=== PATIENT | female | born 1985 | race African-American/Black ===

== ENCOUNTER 2019-04-07 17:56 | Emergency (ER) | payer OTHER | END 2019-04-07 18:59 | disposition home or self-care (01) | LOC: JERFT 17:56 ==

== ENCOUNTER 2022-01-18 17:12 | Emergency (ER) | payer OTHER ==
[2022-01-18 17:19] VITALS: PULSE 98; BMI 39.0
[2022-01-18 19:02] VITALS: TEMP 98.4
[2022-01-18 19:54] VITALS: BP 124/70
== END 2022-01-18 19:40 | disposition home or self-care (01) ==
LOC: JER 17:12
DX: O21.8 Other vomiting complicating pregnancy (principal); Z3A.30 30 weeks gestation of pregnancy
CPT/HCPCS: 99281-25

== ENCOUNTER 2022-03-21 07:55 | Inpatient (IN) | payer OTHER ==
[2022-03-21 08:50] VITALS: BMI 42.4
[2022-03-21 09:06] LABS: BASO % 0.5 % (0-2.0); EOS % 0.7 % (0-4.5); HEMATOCRIT 28.5 % (32.4-45.2); HEMOGLOBIN 9.6 GM/dL (10.7-15.3); LYMPH % 19.2 % (8-40); MCH 28.3 pg (25.7-33.7); MCHC 33.7 g/dl (32.0-36.0); MEAN PLT VOLUME 6.9 fl (7.5-11.1); MONO % 4.6 % (3.8-10.2); PLATELET COUNT 308 10^3/uL (134-434); RBC 3.39 M/mm3 (3.60-5.2); RDW 13.9 % (11.6-15.6); WHITE BLOOD COUNT 8.3 K/mm3 (4.0-10.0)
[2022-03-21 09:14] LABS: ACTIVATED PTT 31.1 SECONDS (25.2-36.5); INR 0.97 (0.83-1.09); PROTHROMBIN TIME (PATIENT) 11.1 SEC (9.7-13.0)
[2022-03-21] MEDS ORDERED: DEXTROSE 5%-LACTATED RINGERS 1,000 ML IV SCH (09:15)
[2022-03-21] MEDS ORDERED: OXYTOCIN 30 UNITS in 0.9% NS 30 UNIT/500 ML INFUS.BAG IVPB SCH (09:15)
[2022-03-21] MEDS ORDERED: PROMETHAZINE HCL 25 MG/1 ML VIAL IVPUSH ONE (09:16)
[2022-03-21] MEDS ORDERED: BUTORPHANOL TARTRATE 1 MG/ML VIAL IVPUSH SCH (09:16)
[2022-03-21] MEDS ORDERED: OXYTOCIN 30 UNITS in 0.9% NS 30 UNIT/500 ML INFUS.BAG IVPB ONE (09:25)
[2022-03-21 09:30] LABS: BLOOD UREA NITROGEN 17.4 mg/dL (7-18)
[2022-03-21 09:31] LABS: PHENCYCLIDINE,URINE NEGATIVE (NEGATIVE); URINE BARBITURATES NEGATIVE (NEGATIVE)
[2022-03-21 09:32] LABS: COCAINE, UR NEGATIVE (NEGATIVE); METHADONE, UR NEGATIVE (NEGATIVE); OPIATES, URI NEGATIVE (NEGATIVE); URINE BENZODIAZEPINES NEGATIVE (NEGATIVE)
[2022-03-21 09:33] LABS: CREATININE 0.5 mg/dL (0.55-1.3)
[2022-03-21 09:34] LABS: URINE AMPHETAMINES NEGATIVE (NEGATIVE)
[2022-03-21] MEDS ORDERED: BUTORPHANOL TARTRATE 2 MG/ML VIAL ONE (13:10)
[2022-03-21] MEDS ORDERED: PROMETHAZINE HCL 25 MG/1 ML VIAL ONE (13:11)
[2022-03-21] MEDS ORDERED: ELECTROLYTE-148 SOLN 1,000 ML IV SCH (15:30)
[2022-03-21] MEDS ORDERED: FENTANYL/BUPIVACAINE/NS/PF - PCEA - 50 ML DISP.SYRIN EP ONE ×2 (15:36→20:54)
[2022-03-21] MEDS ORDERED: NALOXONE HCL 0.4 MG/ML VIAL IVPUSH PRN (15:49)
[2022-03-21] MEDS ORDERED: BUPIVACAINE HCL/PF 0.25% (2.5MG/ML) 10 ML VIAL ONE (15:53)
[2022-03-21] MEDS ORDERED: FENTANYL/BUPIVACAINE/NS/PF - PCEA - 50 ML DISP.SYRIN EP SCH (16:00)
[2022-03-21] MEDS ORDERED: CITRIC ACID/SODIUM CITRATE 30 ML UNIT-DOSE CUP PO ONE (21:39)
[2022-03-21] MEDS ORDERED: AMPICILLIN SODIUM 2 GM VIAL ONE (21:59)
[2022-03-21] MEDS ORDERED: AMPICILLIN - 2 GM in SODIUM CHLORIDE 100 ML IVPB ONE (22:00)
[2022-03-22] MEDS ORDERED: FENTANYL/BUPIVACAINE/NS/PF - PCEA - 50 ML DISP.SYRIN EP ONE (01:58)
[2022-03-22] MEDS ORDERED: AMPICILLIN SODIUM 1 GM VIAL ONE (01:59)
[2022-03-22] MEDS ORDERED: AMPICILLIN - 1 GM in SODIUM CHLORIDE 100 ML IVPB SCH (02:00)
[2022-03-22] MEDS ORDERED: BUPIVACAINE HCL/PF 0.25% (2.5MG/ML) 10 ML VIAL ONE (03:19)
[2022-03-22] MEDS ORDERED: LIDOCAINE HCL 1% PRESERVATIVE FREE - 30ML VIAL ONE (03:27)
[2022-03-22] MEDS ORDERED: OXYTOCIN 20 UNITS in 0.9% NS 20 UNIT/1,000 ML INFUS.BAG IV ONE (03:27)
[2022-03-22] MEDS ORDERED: MISOPROSTOL 200 MCG TABLET ONE (04:25)
[2022-03-22] MEDS ORDERED: MISOPROSTOL 25 MCG TABLET (COMPOUNDED BY PHARMACY) PO ONE (04:30)
[2022-03-22] MEDS ORDERED: METHYLERGONOVINE MALEATE 0.2 MG/1 ML AMP IM PRN (06:07)
[2022-03-22] MEDS ORDERED: ACETAMINOPHEN 325 MG TABLET (FP) PO PRN (06:07)
[2022-03-22] MEDS ORDERED: WITCH HAZEL 50% (TUCKS) 40 PAD/JAR PAD TP PRN (06:07)
[2022-03-22] MEDS ORDERED: BENZOCAINE 28 GM HEMORRHOIDAL OINTMENT TP PRN (06:07)
[2022-03-22] MEDS ORDERED: BENZOCAINE 20% 57 GM BOTTLE TP PRN (06:07)
[2022-03-22] MEDS ORDERED: BISACODYL 10 MG SUPP.RECT RC PRN (06:07)
[2022-03-22] MEDS ORDERED: OXYTOCIN 20 UNITS in 0.9% NS 20 UNIT/1,000 ML INFUS.BAG IV SCH (06:15)
[2022-03-22 07:05] LABS: CORD BASE EXCESS -5.4 mmol/L (0-2); CORD HCO3 20.7 mmHg (20-29); CORD PCO2 42.4 mmHg (30-78); CORD pH 7.307 (7.14-7.44)
[2022-03-22 07:08] LABS: CORD BASE EXCESS -6.7 mmol/L (0-2); CORD HCO3 21.6 mmHg (20-29); CORD pH 7.229 (7.14-7.44)
[2022-03-22] MEDS: FERROUS SO4 325 MG TABLET (FP) PO SCH ×2 (08:17→17:05)
[2022-03-22] MEDS: IBUPROFEN 600 MG TABLET (FP) PO PRN ×3 (08:17→23:44)
[2022-03-22] MEDS: PRENATAL VITAMINS W/ FOLIC ACID TABLET (FP) PO SCH (09:39)
[2022-03-23 07:05] LABS: BASO % 0.5 % (0-2.0); EOS % 1.4 % (0-4.5); HEMATOCRIT 22.9 % (32.4-45.2); HEMOGLOBIN 7.5 GM/dL (10.7-15.3); LYMPH % 23.9 % (8-40); MCH 28.1 pg (25.7-33.7); MCHC 32.9 g/dl (32.0-36.0); MEAN CELL VOLUME 85.3 fl (80-96); MEAN PLT VOLUME 7.4 fl (7.5-11.1); MONO % 5.7 % (3.8-10.2); NEUT % 68.5 % (42.8-82.8); PLATELET COUNT 261 10^3/uL (134-434); RBC 2.68 M/mm3 (3.60-5.2); RDW 14.2 % (11.6-15.6); WHITE BLOOD COUNT 10.2 K/mm3 (4.0-10.0)
[2022-03-23] MEDS: PRENATAL VITAMINS W/ FOLIC ACID TABLET (FP) PO SCH (10:11)
[2022-03-23] MEDS: FERROUS SO4 325 MG TABLET (FP) PO SCH ×2 (10:11→17:44)
[2022-03-23] MEDS: oxyCODONE HCL 5 MG TABLET PO PRN ×2 (11:41→21:52)
[2022-03-23] MEDS ORDERED: SENNOSIDES/DOCUSATE COMBO (SENNA PLUS) TABLET (UD) PO PRN (22:00)
[2022-03-23 22:15] VITALS: BP 110/73
[2022-03-24] MEDS: FERROUS SO4 325 MG TABLET (FP) PO SCH (08:17)
[2022-03-24] MEDS: IBUPROFEN 600 MG TABLET (FP) PO PRN (08:17)
[2022-03-24 09:47] VITALS: TEMP 99.5
[2022-03-24] MEDS ORDERED: DIPHTH,PERTUSS(ACELL),TET 0.5 ML DISP.SYRIN IM ONE (10:00)
[2022-03-24] MEDS: PRENATAL VITAMINS W/ FOLIC ACID TABLET (FP) PO SCH (10:06)
[2022-03-24 11:01] VITALS: PULSE 75
== END 2022-03-24 12:40 | disposition home or self-care (01) | DRG 560 ==
LOC: JLDR 07:55 → J3W 03-22 08:09
PROVIDERS: ADMIT Obstetrics & Gynecology; ATTEND Obstetrics & Gynecology
PROC: 10H073Z Insertion of Monitoring Electrode into Products of Conception, Via Natural or Artificial Opening (ICD-10-PCS; 2022-03-21)
PROC: 10E0XZZ Delivery of Products of Conception, External Approach (ICD-10-PCS; principal; 2022-03-22)
PROC: 0W8NXZZ Division of Female Perineum, External Approach (ICD-10-PCS; 2022-03-22)
DX: O42.02 Full-term premature rupture of membranes, onset of labor within 24 hours of rupture (principal); O72.1 Other immediate postpartum hemorrhage; O69.1XX0 Labor and delivery complicated by cord around neck, with compression, not applicable or unspecified; O99.214 Obesity complicating childbirth; E66.01 Morbid (severe) obesity due to excess calories; Z3A.39 39 weeks gestation of pregnancy; Z37.0 Single live birth; Z86.59 Personal history of other mental and behavioral disorders; O99.320 Drug use complicating pregnancy, unspecified trimester; F12.11 Cannabis abuse, in remission
CPT/HCPCS: 36415; 36600; 59409; 80048; 80307; 82803; 85025; 85610; 85730; 86780; 86850; 86900; 86901; 90715; C9803-CS; U0003; U0005